=== PATIENT | male | born 1980 | race Caucasian/White ===

== ENCOUNTER → 2019-06-05 | Outpatient (CLI) | payer BC ==
--- NOTE | 2019-06-05 17:08 | RAD ---
Examination: CT right shoulder without contrast HISTORY: History of right proximal humerus fracture COMPARISON: None available TECHNIQUE: Axial CT images of the right shoulder performed without contrast. Coronal and sagittal reformats are performed Exposure: One or more of the following individualized dose reduction techniques were utilized for this examination: 1. Automated exposure control 2. Adjustment of the mA and/or kV according to patient size 3. Use of iterative reconstruction technique FINDINGS: The humerus head is within the glenoid. There is comminuted nondisplaced fracture of the proximal humerus involving the neck of the humerus with the fracture lines extending into the head of the humerus anteriorly and involving the greater and lesser tuberosities. The acromion is type II. Fat stranding identified about the right shoulder extending inferiorly and anteriorly likely secondary to soft tissue injury. The right lung is clear. IMPRESSION: 1. Nondisplaced comminuted fracture of the proximal humerus as described above. Electronically signed by: James Metzger MD (06/05/2019 5:05 PM) [id number]
== END | disposition home or self-care (01) ==
LOC: CT 16:21
PROVIDERS: ATTEND Orthopaedic Surgery
DX: S42.294A Other nondisplaced fracture of upper end of right humerus, initial encounter for closed fracture (principal); V41.9XXA Unspecified car occupant injured in collision with pedal cycle in traffic accident, initial encounter; Y93.89 Activity, other specified; Y92.89 Other specified places as the place of occurrence of the external cause; Y99.8 Other external cause status
CPT/HCPCS: 36415; 73200; 82306